=== PATIENT | male | born 1985 | race Asian ===

== ENCOUNTER 2016-07-03 02:48 | Emergency (ER) | payer OTHER ==
[~2016-07-03] VITALS: Ht 182.9 cm; Wt 110.7 kg
[2016-07-03] MEDS ORDERED: LIDOCAINE 1% HCL (LOCAL ANESTH.) INJ 20ML MDV ID ONE (03:30)
[2016-07-03 03:33] VITALS: BP 150/86
== END 2016-07-03 04:07 | disposition home or self-care (01) ==
LOC: ER 02:48
DX: S60.131A Contusion of right middle finger with damage to nail, initial encounter (principal); W23.0XXA Caught, crushed, jammed, or pinched between moving objects, initial encounter; Y93.89 Activity, other specified; Y99.8 Other external cause status; Y92.89 Other specified places as the place of occurrence of the external cause
CPT/HCPCS: 10140; 29130; 73140; 99284; J2001; 10060; 26010

== ENCOUNTER 2016-07-20 22:45 | Emergency (ER) | payer OTHER ==
[~2016-07-20] VITALS: Ht 182.9 cm; Wt 110.7 kg
[2016-07-20 23:03] VITALS: BP 142/100
[2016-07-20 23:36] LABS: Basophils # (auto) 0.1 uL; Basophils % (auto) 1.6 % (0.0-2.0); Eosinophils # (auto) 0.1 uL; Eosinophils % (auto) 1.9 % (0.0-7.0); Hematocrit 48.5 % (41.0-53.0); Hemoglobin 15.6 g/dL (13.5-17.5); Lymphocytes # (auto) 3.6 uL; Mean Corpuscular Hemoglobin 28.5 pg (28.0-32.0); Mean Corpuscular Hgb Conc. 32.1 g/dL (32.0-36.0); Mean Corpuscular Volume 88.7 fL (80.0-100.0); Mean Platelet Volume 7.9 fL (7.4-10.4); Monocytes # (auto) 1.2 uL; Neutrophils # (auto) 2.8 uL; Neutrophils % (auto) 36.5 % (37.0-80.0); Platelet Count (auto) 321 10^3/uL (140-450); White Blood Cell 7.8 10^3/uL (4.4-10.8)
[2016-07-20 23:42] LABS: INR 0.94 (0.9-1.15); Partial Thromboplastin Time 26.7 sec (22.64-33.71); Prothrombin Time 10.2 sec (9.37-12.3)
[2016-07-20 23:54] LABS: Amylase 54 U/L (25-115); Anion Gap 6 (5-15); Aspartate Aminotransferase 31 U/L (15-37); BUN/Creatinine Ratio 10.5; Blood Urea Nitrogen 12 mg/dL (7-18); Carbon Dioxide 29 mmol/L (21-32); Chloride 107 mmol/L (98-107); GFR African American 96 mL/min; GFR Non-African American 79 mL/min; Glucose 97 mg/dL (74-106); Potassium 4.1 mmol/L (3.5-5.1); Sodium 142 mmol/L (136-145)
[2016-07-20 23:59] LABS: Alkaline Phosphatase 87 U/L (45-117); Bilirubin, Total 0.2 mg/dL (0.2-1.0); Total Protein 8.5 g/dL (6.4-8.2)
== END 2016-07-21 02:25 | disposition left against medical advice (07) ==
LOC: ER 22:45
DX: R10.32 Left lower quadrant pain (principal); Z53.21 Procedure and treatment not carried out due to patient leaving prior to being seen by health care provider
CPT/HCPCS: 36415; 80053; 82150; 83690; 84484; 85025; 85610; 85730